=== PATIENT | female | born 1960 | race Caucasian/White ===

== ENCOUNTER 2019-05-20 10:53 | Inpatient (IN) | payer BC ==
[~2019-05-20] VITALS: Ht 165.1 cm; Wt 76.8 kg
[2019-05-30 13:07] VITALS: BP 110/73
== END 2019-05-30 13:25 | disposition home or self-care (01) | DRG 340 ==
LOC: ED 11:59 → EDIP 13:02 → 4NOR 14:31 → OBSVTOIN 23:20 → 4NOR 05-28 16:20
PROVIDERS: ADMIT Surgery; ATTEND Surgery
PROC: 0DTJ4ZZ Resection of Appendix, Percutaneous Endoscopic Approach (ICD-10-PCS; principal; 2019-05-20)
DX: K35.32 Acute appendicitis with perforation, localized peritonitis, and gangrene, without abscess (principal); E78.5 Hyperlipidemia, unspecified; H40.9 Unspecified glaucoma; I10 Essential (primary) hypertension; K59.00 Constipation, unspecified
CPT/HCPCS: 36415; 74018; 99285; S0020; 74177; 80048; 80053; 82040; 83690; 83735; 84703; 85025; 86140; 88304; 93005; 96374; 96375; G0378; J0131; J0690; J1100; J1650; J2250; J2405; J2543; J2704; J2710; J3010; J3480; Q9967; J0330; J1200; J2060; J2270; J3490; J7040; Q0163